=== PATIENT | female | born 1930 | race Caucasian/White ===

== ENCOUNTER 2017-04-27 06:58 | Inpatient (IN) ==
[2017-04-27] MEDS ORDERED: Lidocaine -MPF 1% 2 ML VIAL ID ONE (08:15)
[2017-04-27] MEDS ORDERED: cefOXitin 2,000 MG in D5% in Water (Mini-Bag+) 100 ML IVPB ONE (08:15)
[2017-04-27] MEDS ORDERED: Ringers Solution, Lactated 1,000 ML IVC SCH (08:15)
--- NOTE | 2017-04-27 08:27 | Anesthesia Evaluation PreOp ---
Date of Encounter: 04/27/17 Time of Encounter: 08:25 - Past History Planned Operation: Robotic descending colon resection Cardiac History: MD, CHF, HTN, Hyperlipidemia, Other (Cardiomyopathy EF- 30-35%) Pulmonary History: Denies Any Significant HX REJECT OPENER AND FILLER History: Denies Any Significant HX, Syncope (Hx of syncopy ( last episode 1 year ago)) Other Medical History: Renal (lithiasis), Other (Glaucoma) Anesthesia History: No Prior Anesthetic Complications, Past Anesthesia (Tonsils , Appy, Bowel resection, GB, renal stones) : No Alcohol Use: none Drug use: none Medications and Allergies Aspirin [Adult Low Dose Aspirin EC] 81 mg PO DAILY 01/06/16 [History] Latanoprost [Xalatan] 1 drop BOTH EYES HS 01/06/16 [History] Multivit-Min/FA/Lycopen/Lutein [Centrum Silver Tablet] 1 each PO DAILY 01/06/16 [History] Omeprazole Magnesium [Prilosec Otc] 20 mg PO DAILY 01/06/16 [History] Ferrous Sulfate [Iron] 325 mg PO TID 02/18/16 [History] Pravastatin Sodium [Pravachol] 40 mg PO DAILY 02/18/16 [History] Timolol [Betimol] 1 drop OP QAM 02/18/16 [History] Furosemide [Lasix] 40 mg PO DAILY 03/28/16 [History] Isosorbide MONOnitrate (24 HR) [Imdur] 30 mg PO DAILY 03/28/16 [History] Losartan Potassium [Cozaar] 25 mg PO DAILY 03/28/16 [History] Calcium Citrate/Vitamin D2 [Calcium with Vit D Tablet] 1 each PO BID 07/22/16 [ History] Docusate Sodium [Dok] 100 mg PO DAILY 07/22/16 [History] Allergies Sulfa (Sulfonamide Antibiotics) Allergy (Verified 01/06/17 14:54) Rash bacitracin [From Neosporin ([id number])] Adverse Reaction (Verified 01/06/17 14:54) Redness of Skin lisinopril Adverse Reaction (Verified 01/06/17 14:54) Cough Neomycin [From Neosporin ([id number])] Adverse Reaction (Verified 01/06/17 14 :54) Redness of Skin polymyxin B [From Neosporin (ooe-pxi-bvpyt)] Adverse Reaction (Verified 14:54) Redness of Skin - Meds/Allergy Pre-op Review Medications Reviewed: Yes Allergies Reviewed: Yes Beta Blockers on Current Med List: No Anesthesia Results - Labs Stress echo Mod to severe EF- 30-35% EF improved to 35-40% with 20 mcg/kg/min dobutamine Laboratory Tests 03/09/17 04/25/17 04/25/17 11:00 12:10 12:10 WBC 5.3 Hgb 8.8 L Hct 28.6 L Plt Count 324 INR 1.1 Sodium 142 Potassium 4.0 Chloride 105 Carbon Dioxide 27 BUN 9 Creatinine 0.91 - Imaging EKG: image reviewed (SB with LBBB) Anesthesia Exam O2 Sat Height 1.42 m Height 1.42 m Weight 37.648 kg Weight 37.648 kg O2 Sat by Pulse Oximetry 99 Vital Signs Temp Pulse Resp BP Pulse Ox 98.0 F 65 16 140/71 99 04/27/17 07:28 04/27/17 07:28 04/27/17 07:28 04/27/17 07:28 04/27/17 07:28 Height: 4'8'' Weight: 83# NPO (# of Hours): > 8 hrs Pain Scale: 0 Pain Scale Used: Numeric (1 - 10) - HEENT Pupil (Motor): Pupils equal, EOMI Mallampati: III Teeth: Poor dentition Oral Opening: Greater than 3 - REJECT OPENER AND FILLER LOC: Oriented REJECT OPENER AND FILLER Motor: Normal RUE, Normal LUE, Normal RLE, Normal LLE, Normal Face REJECT OPENER AND FILLER Sensory: Normal: RUE, LUE, RLE, LLE, Face - Cardiac Rhythm: Regular Murmur: None JVD: No Carotid Bruit: No - Pulmonary Breath Sounds: bilateral Clear Respiratory Effort: Symmetrical Anesthesia Assess/Plan ASA Score: 4 Modified [place] Scale for Level of Consciousness: Cooperative, oriented, and tranquil Anesthetic Plan: General Autologous Blood: Yes Monitoring Plan: Standard Monitors, A-Line Recovery Plan: PACU
[2017-04-27] MEDS ORDERED: Albumin Human 5% 25.0 GM/500 ML VIAL ONE (08:57)
[2017-04-27] MEDS ORDERED: *HR* Propofol 200 MG/20 ML VIAL IVP ONE (08:59)
[2017-04-27] MEDS ORDERED: *HR* Rocuronium Bromide 50 MG/5 ML VIAL ONE (09:01)
[2017-04-27] MEDS ORDERED: Lidocaine -MPF 2% 2 ML VIAL ONE ×2 (09:01→10:02)
--- NOTE | 2017-04-27 09:20 | History & Physical Report ---
Date of Encounter: 04/27/17 Time of Encounter: 09:19 24 Hour HP Update - Instructions Instructions: If the History and Physical is less than 30 days old and was completed prior to A.M. admission and or procedure and has NOT been updated on calendar day of procedure please complete this update prior to performing procedure. - Update Patient reports changes in Medical Condition: No Changes in examination, assessment, or condition: No Changes in Medication: No Preop tests/diagnostics Reviewed: Yes Surgery Remains Indicated: Yes Consent for Planned Operative Procedure(s) Verified: Yes - Pre-Operative Checklist Preoperative Checklist Indicated: Yes Prophylactic Antibiotic Ordered: Yes Home Medications Include Beta Christofer: No
[2017-04-27] MEDS ORDERED: *HR* Etomidate 40 MG/20 ML VIAL IVP ONE (09:39)
[2017-04-27] MEDS ORDERED: Heparin 1,000 UNITS/500 mL NS 500 ML ONE (09:52)
[2017-04-27] MEDS ORDERED: EPHEDrine 50 MG/ML VIAL ONE (10:42)
[2017-04-27] MEDS ORDERED: *HR* FentaNYL (PF) 100 MCG/2 ML VIAL ONE (10:46)
[2017-04-27] MEDS ORDERED: Neostigmine Methylsulfate 3 MG/3 ML SYRINGE ONE ×2 (11:59→14:02)
--- NOTE | 2017-04-27 12:59 | Anesthesia Evaluation Post Op ---
Date of Encounter: 04/27/17 Time of Encounter: 12:58 - Vital Signs Vital Signs: Vital Signs/O2 Sat, Most Current Temp Pulse Resp BP Pulse Ox 99.2 F 70 16 154/75 100 04/27/17 12:25 04/27/17 12:45 04/27/17 12:45 04/27/17 12:45 04/27/17 12:45 - Lungs Lungs: Clear Ascult./Percussion - Airway Airway: Non-obstructed - Cardiovascular Regular Rate - Mental Status Mental Status: Alert & Oriented, Answers Appropriately - Pain Pain Scale: 5 (sleeping) - Nausea Vomiting Nausea Vomiting: Not Present - Hydration Hydration: NPO, Medina catheter - Discharge PostOp Status: Transfer Patient to floor
[2017-04-27] MEDS ORDERED: *HR* HYDROmorphone 2 MG/ML SYRINGE IVP PRN (13:38)
[2017-04-27] MEDS ORDERED: Ondansetron 4 MG/2 ML VIAL ONE (14:02)
[2017-04-27] MEDS ORDERED: Naloxone 0.4 MG/ML INJ IVP PRN ×2 (15:38→16:23)
[2017-04-27] MEDS ORDERED: Ondansetron 4 MG/2 ML VIAL IVP PRN ×2 (15:38→16:23)
--- NOTE | 2017-04-27 15:38 | Operative Note ---
Date of procedure: 04/27/17 Pre-op diagnosis: Colon cancer Post-op diagnosis: same Procedure: Store Operations Associate laparotomy with splenic flexure resection and stapled anastomosis Anesthesia: CACHORRO Surgeon: Zeke Sanchez Estimated blood loss (cc): 20 Specimen: Splenic flexure Condition: stable Disposition: same day Procedure in Detail: After informed consent, the patient was taken the operating room placed in the supine position. After adequate sedation anesthesia the abdomen was prepped and draped. A 12 mm cannula site was inserted to the right of the umbilicus. Once the camera was in place I evaluated the abdomen and found that the tattoo john was actually at splenic flexure and not in the descending/sigmoid colon junction. Therefore due to her aortic stenosis and advanced age I decided to make a limited laparotomy incision at the umbilicus by proximally 6 cm. I was able to just get my hand inside of her abdomen and isolate splenic flexure tumor. Fortunately there was excess length of the transverse colon and descending colon. The lateral attachments were taken down with electrocautery. The colon was delivered into the wound bed. The proximal and distal ends of the colon were transected with the MICA 75 mm stapler. There was a wedge lymphadenectomy specimen performed. Once completed the proximal and distal ends of the colon were anastomosed with a MICA 75 mm stapling load and a side to side functional end and capacity. The common enterotomy was closed with a TA 60 stapler. The staple line was oversewn with 3-0 silk. Once completed the abdomen was closed with a looped PDS suture and skin was closed with steph. She tolerated the procedure well.
[2017-04-27] MEDS ORDERED: D5% in 0.45% NACL 1,000 ML IVC SCH (15:45)
[2017-04-27] MEDS: Ringers Solution, Lactated 1,000 ML IVC SCH (18:04)
[2017-04-27] MEDS: D5% in 0.45% NACL 1,000 ML IVC SCH (18:04)
[2017-04-27] MEDS: *HR* HYDROmorphone 2 MG/ML SYRINGE IVP PRN (18:07)
[2017-04-28 05:52] LABS: Basophils % 0.3 %; Hematocrit 25.2 % (35.3-44.9); Immature Granulocytes % 0.2 % (0-4); Lymphocytes # 0.8 K/mcL (0.6-4.6); Lymphocytes % 8.2 %; Mean Corpuscular HGB Conc 31.7 g/dL (31.6-35.5); Mean Corpuscular Hemoglobin 29.3 pg (28.0-33.3); Mean Corpuscular Volume 92.3 fL (83.0-100.0); Mean Platelet Volume 11.2 fL (9.4-12.4); Monocytes # 0.6 K/mcL (0.0-1.3); Monocytes % 6.1 %; Platelet Count 221 K/mcL (140-400); Red Blood Count 2.73 M/mcL (3.82-4.97); Red Cell Distribution Width 13.5 % (11.5-14.5); Segmented Neutrophils % 85.2 %
[2017-04-28 05:55] LABS: Neutrophils # 8.5 K/mcL (1.6-8.9)
[2017-04-28 06:13] LABS: BUN/Creatinine Ratio 8 (6-26); Blood Urea Nitrogen 6 mg/dL (7-20); Calcium 8.2 mg/dL (8.6-10.8); Carbon Dioxide 24 mEq/L (19-29); Chloride 106 mEq/L (98-109); Glucose 140 mg/dL (70-99); Osmolality,Calculated 284 (280-300); Potassium 3.3 mEq/L (3.5-4.5); Sodium 137 mEq/L (136-145); eGFR For African Americans > 60 (> 60); eGFR For Non-African Americans > 60 (> 60)
[2017-04-28] MEDS: *HR* HYDROmorphone 2 MG/ML SYRINGE IVP PRN (07:42)
[2017-04-28] MEDS: D5% in 0.45% NACL 1,000 ML IVC SCH (11:09)
[2017-04-28] MEDS ORDERED: Mag Hydrox/Al Hydrox/Simeth 30 ML UDC PO PRN (19:56)
[2017-04-28] MEDS: Ringers Solution, Lactated 1,000 ML IVC SCH (20:09)
[2017-04-28] MEDS: Isosorbide MONOnitrate (24 HR) 30 MG TAB.ER.24H PO SCH (21:14)
[2017-04-29] MEDS: D5% in 0.45% NACL 1,000 ML IVC SCH ×2 (03:55→20:46)
--- NOTE | 2017-04-29 09:54 | General Surgery Progress Note ---
Date of Encounter: 04/28/17 Time of Encounter: 06:15 - Assessment and Plan (1) Colon cancer Current Visit: Yes Status: Acute Continue clear liquids for now. Patient to be up and ambulate. 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 Subjective Patient reports: no new complaints Objective Vital Signs - Last 8 Hours Temp Pulse Resp BP Pulse Ox 04/29/17 07:26 98.2 F 93 17 139/76 93 04/29/17 03:01 98.5 F 98 14 155/68 96 Intake and Output 04/28/17 04/29/17 04/29/17 23:59 07:59 15:59 Intake Total 340 / 340 1000 / 1000 Output Total 650 / 650 Balance -310 / -310 1000 / 1000 Intake: IV Fluids 1000 / 1000 D5% And 0.45% Nacl 1000 1000 / 1000 Ml Bag 1,000 ML @ 60 mls/ hr IVC .[id number] [facility] Rx#: [id number] Oral 340 / 340 Output: Catheter 650 / 650 Other: Meal Dinner Percent of Meal Consumed 80% Weight 40 kg Patient Weight 04/29/17 23:59 Weight 40 kg - General physical appearance well developed - Eyes PERRL - ENT normal nares - Respiratory normal expansion - Cardiovascular Cardiovascular exam: Present: RRR - Abdomen Abdomen: Present: soft - Labs 04/28/17 05:10 04/28/17 05:10 - VTE Documentation of Mechanical Device: Intermittent pneumatic compression device Consult Discharge Plan - Plan Referrals: Christian Marshall, SENIOR CARE PROVIDER [Primary Care Provider] -
--- NOTE | 2017-04-29 09:56 | General Surgery Progress Note ---
Date of Encounter: 04/29/17 Time of Encounter: 09:54 - Assessment and Plan (1) Colon cancer Current Visit: Yes Status: Acute We will hold on clear liquids for now, plan for acute abdominal series. If there is small bowel distention we will plan to perform an NG tube placement. 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 She is unable to tolerate her clear liquids. She states she feels full and has the feeling that she may vomit.) Objective Vital Signs - Last 8 Hours Temp Pulse Resp BP Pulse Ox 04/29/17 07:26 98.2 F 93 17 139/76 93 04/29/17 03:01 98.5 F 98 14 155/68 96 Intake and Output 04/28/17 04/29/17 04/29/17 23:59 07:59 15:59 Intake Total 340 / 340 1000 / 1000 Output Total 650 / 650 Balance -310 / -310 1000 / 1000 Intake: IV Fluids 1000 / 1000 D5% And 0.45% Nacl 1000 1000 / 1000 Ml Bag 1,000 ML @ 60 mls/ hr IVC .[id number] [facility] Rx#: [id number] Oral 340 / 340 Output: Catheter 650 / 650 Other: Meal Dinner Percent of Meal Consumed 80% Weight 40 kg Patient Weight 04/29/17 23:59 Weight 40 kg - General physical appearance well developed - Eyes PERRL - ENT normal nares - Respiratory normal expansion - Cardiovascular Cardiovascular exam: Present: tachycardia - Abdomen Abdomen: Present: distended - Incision Incision: Present: clean and dry - Labs 04/28/17 05:10 04/28/17 05:10 - VTE Documentation of Mechanical Device: Intermittent pneumatic compression device Consult Discharge Plan - Plan Referrals: Christian Marshall, VICE PRESIDENT QUALITY [Primary Care Provider] -
[2017-04-29] MEDS ORDERED: Ondansetron 4 MG/2 ML VIAL IVP PRN (14:13)
[2017-04-29] MEDS: Ringers Solution, Lactated 1,000 ML IVC SCH (15:06)
[2017-04-29] MEDS: Isosorbide MONOnitrate (24 HR) 30 MG TAB.ER.24H PO SCH (20:44)
--- NOTE | 2017-04-30 10:46 | General Surgery Progress Note ---
Date of Encounter: 05/01/17 Time of Encounter: 10:45 - Assessment and Plan (1) Colon cancer Current Visit: Yes Status: Acute Status post colon resection. Awaiting full return of bowel function. Will continue with NG tube for now and will add Reglan to see if this helps with the patient's nausea symptoms. Otherwise continue current management. Follow BMP. 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 NGT in place. No flatus.) Objective Vital Signs - Last 8 Hours Temp Pulse Resp BP Pulse Ox 04/30/17 07:24 97.7 F 93 20 107/50 95 04/30/17 03:35 98.0 F 91 16 122/65 93 Intake and Output 04/29/17 04/30/17 04/30/17 23:59 07:59 15:59 Intake Total 1000 / 1000 Output Total 100 / 100 200 / 200 Balance 900 / 900 -200 / -200 Intake: IV Fluids 1000 / 1000 D5% And 0.45% Nacl 1000 1000 / 1000 Ml Bag 1,000 ML @ 60 mls/ hr IVC .[id number] [facility] [place] Rx#: [id number] Output: Wound Drainage 100 / 100 200 / 200 Left Narse NG 100 / 100 200 / 200 Other: Meal npo Percent of Meal Consumed 0% Weight 42.9 kg Patient Weight 04/30/17 23:59 Weight 42.9 kg - General physical appearance well nourished, other (Mild distress noted.) - Abdomen Abdomen: Present: soft (Mild incisional pain. Incision CDI. No erythema. No drainage. No bowel sounds.) - Labs 04/28/17 05:10 05/01/17 03:32 - VTE Documentation of Mechanical Device: Intermittent pneumatic compression device Consult Discharge Plan - Plan Referrals: Christian Marshall, INTERNATIONAL LOGISTICS ANALYST [Primary Care Provider] -
[2017-04-30] MEDS: Metoclopramide 10 MG/2 ML VIAL IVP SCH ×2 (12:31→17:32)
[2017-04-30] MEDS: D5% in 0.45% NACL 1,000 ML IVC SCH (12:31)
[2017-04-30] MEDS: Ringers Solution, Lactated 1,000 ML IVC SCH (14:18)
[2017-04-30] MEDS: Isosorbide MONOnitrate (24 HR) 30 MG TAB.ER.24H PO SCH (20:26)
[2017-04-30] MEDS: Latanoprost 2.5 ML BOTTLE BOTH EYES SCH (20:31)
[2017-05-01] MEDS: Metoclopramide 10 MG/2 ML VIAL IVP SCH ×4 (00:30→17:08)
[2017-05-01 04:22] LABS: BUN/Creatinine Ratio 13 (6-26); Blood Urea Nitrogen 8 mg/dL (7-20); Calcium 8.3 mg/dL (8.6-10.8); Carbon Dioxide 26 mEq/L (19-29); Chloride 95 mEq/L (98-109); Glucose 116 mg/dL (70-99); Osmolality,Calculated 269 (280-300); eGFR For African Americans > 60 (> 60); eGFR For Non-African Americans > 60 (> 60)
[2017-05-01 04:24] LABS: Sodium 130 mEq/L (136-145)
[2017-05-01] MEDS: D5% in 0.45% NACL 1,000 ML IVC SCH ×2 (05:31→21:46)
[2017-05-01] MEDS: Pantoprazole 40 MG VIAL IVP SCH (08:12)
--- NOTE | 2017-05-01 08:53 | General Surgery Progress Note ---
Date of Encounter: 05/02/17 Time of Encounter: 08:52 - Assessment and Plan (1) Colon cancer Current Visit: Yes Status: Acute Status post colon resection. NGT output appears to be decreasing. Will consider placing NGT on gravity. Await return of bowel function. 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 Will replace with KCL. Follow BMP. Subjective Patient reports: feels better (States no nausea. No flatus or BM. Pain is controlled with pain medications.), other Objective Vital Signs - Last 8 Hours Temp Pulse Resp BP Pulse Ox 05/01/17 07:40 97.9 F 80 16 134/62 92 05/01/17 04:49 98.1 F 85 14 138/54 93 Intake and Output 04/30/17 05/01/17 05/01/17 23:59 07:59 15:59 Intake Total 1000 / 1000 Output Total 200 / 200 1250 / 1250 150 / 150 Balance -200 / -200 -250 / -250 -150 / -150 Intake: IV Fluids 1000 / 1000 D5% And 0.45% Nacl 1000 1000 / 1000 Ml Bag 1,000 ML @ 60 mls/ hr IVC .[id number] [facility] Rx#: [id number] Output: Catheter 650 / 650 Wound Drainage 200 / 200 600 / 600 150 / 150 Left Narse NG 200 / 200 600 / 600 150 / 150 Other: Meal npo Weight 43.2 kg Patient Weight 05/01/17 23:59 Weight 43.2 kg - General physical appearance well nourished, no distress - Abdomen Abdomen: Present: soft, tender (Mild incisional pain. Scant BS present.) - Musculoskeletal other (No clubbing, cyaosis, or edema present.) - Psychiatric oriented to time, oriented to person, oriented to place - Labs 04/28/17 05:10 05/01/17 03:32 Diabetes panel 05/01/17 Range/Units 03:32 Sodium 130 L D (136-145) mEq/L Potassium 3.0 L (3.5-4.5) mEq/L Chloride 95 L (98-109) mEq/L Carbon Dioxide 26 (19-29) mEq/L BUN 8 (7-20) mg/dL Creatinine 0.63 (0.57-1.11) mg/dL Glucose 116 H (70-99) mg/dL Calcium 8.3 L (8.6-10.8) mg/dL Calcium panel 05/01/17 Range/Units 03:32 Calcium 8.3 L (8.6-10.8) mg/dL Pituitary panel 05/01/17 Range/Units 03:32 Sodium 130 L D (136-145) mEq/L Potassium 3.0 L (3.5-4.5) mEq/L Chloride 95 L (98-109) mEq/L Carbon Dioxide 26 (19-29) mEq/L BUN 8 (7-20) mg/dL Creatinine 0.63 (0.57-1.11) mg/dL Glucose 116 H (70-99) mg/dL Calcium 8.3 L (8.6-10.8) mg/dL Adrenal panel 05/01/17 Range/Units 03:32 Sodium 130 L D (136-145) mEq/L Potassium 3.0 L (3.5-4.5) mEq/L Chloride 95 L (98-109) mEq/L Carbon Dioxide 26 (19-29) mEq/L BUN 8 (7-20) mg/dL Creatinine 0.63 (0.57-1.11) mg/dL Glucose 116 H (70-99) mg/dL Calcium 8.3 L (8.6-10.8) mg/dL - VTE Documentation of Mechanical Device: Intermittent pneumatic compression device Consult Discharge Plan - Plan Referrals: Christain Marshall, INSTITUTIONAL COOK [Primary Care Provider] -
[2017-05-01] MEDS: Ringers Solution, Lactated 1,000 ML IVC SCH (13:43)
[2017-05-01] MEDS: Latanoprost 2.5 ML BOTTLE BOTH EYES SCH (21:43)
[2017-05-01] MEDS: Isosorbide MONOnitrate (24 HR) 30 MG TAB.ER.24H PO SCH (21:43)
[2017-05-02] MEDS: Metoclopramide 10 MG/2 ML VIAL IVP SCH ×4 (00:27→16:58)
[2017-05-02] MEDS: Pantoprazole 40 MG VIAL IVP SCH (06:10)
--- NOTE | 2017-05-02 15:05 | General Surgery Progress Note ---
Date of Encounter: 05/02/17 Time of Encounter: 14:45 - Assessment and Plan (1) Colon cancer Current Visit: Yes Status: Acute POD #5 laparotomy with splenic flexure resection and stapled anastomosis with Dr. 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 (2) DVT prophylaxis Current Visit: Yes Status: Acute EPCDs to bilateral lower extremities for DVT prophylaxis Ambulate hallways with assistance add heparin 5,000 units SQ twice daily Subjective Patient reports: no new complaints, feels better, pain is less (denies pain, states that she is "sore"), no flatus, bowel movement, afebrile, other (Patient states that she is hungry and ready for food.) Objective Vital Signs - Last 8 Hours Temp Pulse Resp BP Pulse Ox 05/02/17 10:53 98.0 F 88 17 151/69 96 05/02/17 09:10 92 05/02/17 07:14 98.2 F 81 18 145/62 92 Intake and Output 05/01/17 05/02/17 05/02/17 23:59 07:59 15:59 Intake Total 1000 / 1000 Output Total 0 / 0 50 / 50 Balance 1000 / 1000 -50 / -50 Intake: IV Fluids 1000 / 1000 D5% And 0.45% Nacl 1000 1000 / 1000 Ml Bag 1,000 ML @ 60 mls/ hr IVC .[id number] [facility] Rx#: [id number] Output: Wound Drainage 0 / 0 50 / 50 Left Narse NG 0 / 0 50 / 50 Other: Meal NPO for dinner NPO for lunch Stool Size Large Stool Consistency liquid soft Stool Color Brown # Bowel Movements 1 Weight 42.7 kg Patient Weight 05/02/17 23:59 Weight 42.7 kg - General physical appearance well developed, well nourished, no distress - Eyes normal ocular movement - ENT dry mucosa, atraumatic, normocephalic - Neck Neck exam: trachea midline - Respiratory normal respiratory effort, clear to auscultation - Cardiovascular Cardiovascular exam: Present: RRR - Abdomen Abdomen: Present: bowel sounds present, soft, tender (minimal, expected tenderness), wound (NG tube to gravity with less than 100ml of drainage since midnight) - Incision Incision: Present: clean and dry, intact - Genitourinary other (bardales catheter to SD with clear, yellow urine) - Neurologic CN 2-12 grossly intact - Psychiatric oriented to time, oriented to person, oriented to place, speech is normal, memory intact - Labs 04/28/17 05:10 05/01/17 03:32 - VTE Documentation of Mechanical Device: Intermittent pneumatic compression device Consult Discharge Plan - Plan Referrals: Christian Marshall, GRANT COORDINATOR [Primary Care Provider] - - Attending Attestation I examined this patient and my medical decision-making was reviewed with the MULTIMEDIA ASSISTANT/PA/Advanced Practice Nurse/Resident Physician. I agree with the documented findings, disposition and treatment plan as described except to the extent set forth below.
[2017-05-02] MEDS ORDERED: *HR* HYDROcodone/Acet 5/325 mg TABLET PO PRN (15:21)
[2017-05-02] MEDS ORDERED: Acetaminophen 325 MG TABLET PO PRN (15:22)
[2017-05-02] MEDS ORDERED: *HR* HYDROmorphone 2 MG/ML SYRINGE IVP PRN (15:24)
[2017-05-02] MEDS: *HR* Heparin 5,000 UNIT/ML VIAL SQ SCH (16:57)
[2017-05-02] MEDS: Isosorbide MONOnitrate (24 HR) 30 MG TAB.ER.24H PO SCH (21:02)
[2017-05-02] MEDS: Latanoprost 2.5 ML BOTTLE BOTH EYES SCH (21:03)
[2017-05-03] MEDS: Metoclopramide 10 MG/2 ML VIAL IVP SCH ×2 (00:31→06:49)
[2017-05-03 06:33] LABS: Albumin 2.3 g/dL (3.5-5.0); BUN/Creatinine Ratio 16 (6-26); Blood Urea Nitrogen 9 mg/dL (7-20); Calcium 8.1 mg/dL (8.6-10.8); Carbon Dioxide 24 mEq/L (19-29); Chloride 103 mEq/L (98-109); Glucose 98 mg/dL (70-99); Osmolality,Calculated 273 (280-300); Potassium 3.4 mEq/L (3.5-4.5); Sodium 132 mEq/L (136-145); eGFR For African Americans > 60 (> 60); eGFR For Non-African Americans > 60 (> 60)
[2017-05-03] MEDS: *HR* Heparin 5,000 UNIT/ML VIAL SQ SCH (06:48)
[2017-05-03 11:18] VITALS: BP 116/61
--- NOTE | 2017-05-03 11:21 | Discharge Summary ---
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 - Discharge Medications Home Medications: Latanoprost [Xalatan] 1 drop BOTH EYES HS 01/06/16 [History] Multivit-Min/FA/Lycopen/Lutein [Centrum Silver Tablet] 1 each PO DAILY 01/06/16 [History] Omeprazole Magnesium [Prilosec Otc] 20 mg PO DAILY 01/06/16 [History] Ferrous Sulfate [Iron] 325 mg PO TID 02/18/16 [History] Pravastatin Sodium [Pravachol] 40 mg PO DAILY 02/18/16 [History] Timolol [Betimol] 1 drop OP QAM 02/18/16 [History] Furosemide [Lasix] 40 mg PO DAILY 03/28/16 [History] Isosorbide MONOnitrate (24 HR) [Imdur] 30 mg PO DAILY 03/28/16 [History] Losartan Potassium [Cozaar] 25 mg PO DAILY 03/28/16 [History] Calcium Citrate/Vitamin D2 [Calcium with Vit D Tablet] 1 each PO BID 07/22/16 [ History] Docusate Sodium [Dok] 100 mg PO DAILY PRN 07/22/16 [History] Acetaminophen [Tylenol] 650 mg PO Q6HR PRN #0 tablet 05/03/17 [Rx] Allergies/Adverse Reactions: Allergies Sulfa (Sulfonamide Antibiotics) Allergy (Verified 04/27/17 09:23) Rash bacitracin [From Neosporin ([id number])] Adverse Reaction (Verified 04/27/17 09:23) Redness of Skin lisinopril Adverse Reaction (Verified 04/27/17 09:23) Cough Neomycin [From Neosporin ([id number]-cgzkz)] Adverse Reaction (Verified 04/27/17 09 :23) Redness of Skin polymyxin B [From Neosporin ([id number]-wve-jmoqy)] Adverse Reaction (Verified 09:23) Redness of Skin General Surgery Exam Initial Vital Signs Temp Pulse Resp BP Pulse Ox 98.0 F 65 16 140/71 99 04/27/17 07:28 04/27/17 07:28 04/27/17 07:28 04/27/17 07:28 04/27/17 07:28 - General physical appearance well developed, well nourished, no distress, other (Out of bed to chair) - Eyes normal ocular movement - ENT normal mucosa, atraumatic, normocephalic - Neck trachea midline - Respiratory normal respiratory effort, clear to auscultation - Cardiovascular Cardiovascular exam: Present: RRR, 15, 16 - Abdomen Abdomen general surgery: Present: bowel sounds present, soft, tender (Minimal, expected postoperative tenderness) - Incision Incision: Present: clean and dry, intact - Integumentary Integumentary general surgery: Present: warm and dry - Neurologic Present: CN 2-12 grossly intact - Psychiatric Psychiatric general surgery: Present: appropriate, oriented to person, oriented to place, oriented to time, speech is normal, memory intact Date of admission: 04/27/17 13:03 Primary care physician: Christian Marshall CNP Consults: 05/01/17 07:25 Consult to Occupational Therapy [CONS] Routine Comment: Evaluate, develop and implement POC Reason for Consult: open colon resection. activity intolerance. Consult to Physical Therapy [CONS] Routine Comment: Evaluate, develop and implement POC Reason for Consult: open colon resection. activity intolerance. 05/02/17 15:24 consult to machining and assembly supervisor [Consult to Nutrition] [CONS] Routine Comment: chocolate ensure TID with meals Consulting Provider: NUTRITION Reason for Dietary Consult: PO Supplementation Discharging clinician: Zeke Vincent [facility]) Anticipated date of discharge: 05/03/17 - Patient Status Disposition: Home, Self-Care Condition: Good Functional capacity at discharge: independent ambulation Overall status at discharge: patient is progressing back to baseline - Discharge Instructions Follow Up With: Zeke Sanchez DO [Partnered Physician] - 05/10/17 1:00 pm (Surgery follow-up) Heber Kinsey MD [Partnered Physician] - 05/10/17 9:30 am (2 weeks) Christain Marshall CNP [Primary Care Provider] - Additional Instructions: #1 may shower, no tub bath for 2 weeks #2 wash incisions with soap and water and pat dry daily #3 no lifting, pushing, pulling more than 15 pounds for the next 4 weeks #4 no driving until off narcotics for 24 hours and able to safely react in the car #5 may climb stairs - Diet and Activity Diet: advance to your usual diet - Hospital Course Hospital course: Ms. Barton is a 87 year old female with a history of colon cancer. She was seen and evaluated by Dr. Sanchez as an outpatient and is currently postoperative day #6 from a laparotomy with splenic flexure resection and stapled anastomosis. The patient did experience a postoperative ileus and had to have an NG tube inserted and placed to low intermittent wall suction. She was also given a trial of Reglan. The patient's NG tube was placed to gravity with return of bowel function and she tolerated this without difficulty. Her NG tube was removed on postoperative day #5 and she was started on a soft diet. She is tolerating this without nausea or vomiting. She is having very minimal pain and has not required any pain medication. She has been assessed by occupational therapy and physical therapy and they have recommended that she return to home with assistance from family members. We will begin discharge planning and plan for outpatient follow-up in the next 7-10 days for staple removal. The patient's pathology was reviewed with her and her son and they verbalized understanding. She will be scheduled to follow up with oncology in the next 2 weeks. - Time Spent with Patient Total time spent providing and/or coordinating discharge services: Less than 30 minutes Labs on day of discharge: Labs from last 24 hours 05/03/17 05/03/17 05:40 05:40 Sodium 132 L Potassium 3.4 L Chloride 103 Carbon Dioxide 24 BUN 9 Creatinine 0.58 Est GFR ( Amer) > 60 Est GFR (Non-Af Amer) > 60 BUN/Creatinine Ratio 16 Glucose 98 Calculated Osmolality 273 L Calcium 8.1 L Albumin 2.3 L Prealbumin 9.0 L - Impressions ITS Impressions KUB X-Ray 04/29/17 14:14 IMPRESSION: Small bilateral pleural effusions, worse on the right than the left, and associated bibasilar atelectasis. D/ / 04/29/2017 16:36:45 Georgette Galicia MD / suresh Interpreting Provider: Georgette Galicia MD - Attending Attestation I examined this patient and my medical decision-making was reviewed with the WELDER APPRENTICE GAS/PA/Advanced Practice Nurse/Resident Physician. I agree with the documented findings, disposition and treatment plan as described except to the extent set forth below.
--- NOTE | 2017-05-03 11:32 | Electrocardiograph Report ---
[place] [id number] Test Date: 2017-05-02 Pat Name: Mercedes Barton Department: 113 Room: 3B44 Gender: F Sheet Metal Supervisor: TM : [id number] Requested By: Zeke Sanchez Order Number: [id number] Reading MD: Negra Can Measurements Intervals [place] Rate: 108 P: 42 MT: 151 QRS: -9 QRSD: 146 T: 97 QT: 369 QTc: 432 Interpretive Statements SINUS TACHYCARDIA WITH OCCASIONAL ECTOPIC PREMATURE COMPLEXES LEFT BUNDLE BRANCH BLOCK Electronically Signed On 05-03-2017 11:31:14 EDT by Negra Can
[2017-05-03 14:24] LABS: Carcinoembryonic Antigen 3.3 ng/mL (0-5.0)
== END 2017-05-03 14:42 | disposition home or self-care (01) | DRG 330 ==
LOC: SAMDAY 06:58 → 3BNU 13:03
PROVIDERS: ADMIT Surgery; ATTEND Surgery

== ENCOUNTER 2017-08-22 07:37 | Inpatient (IN) ==
[2017-08-22] MEDS ORDERED: Heparin 1,000 UNITS/500 mL NS 500 ML ONE (08:39)
[2017-08-22] MEDS ORDERED: ceFAZolin 1,000 MG in D5% in Water (Mini-Bag+) 100 ML IVPB SCH (08:56)
[2017-08-22] MEDS ORDERED: *HR* FentaNYL (PF) 100 MCG/2 ML VIAL IVP PRN (08:56)
--- NOTE | 2017-08-22 08:56 | History & Physical Report ---
Date of Encounter: 08/22/17 Time of Encounter: 09:00 24 Hour HP Update - Instructions Instructions: If the History and Physical is less than 30 days old and was completed prior to A.M. admission and or procedure and has NOT been updated on calendar day of procedure please complete this update prior to performing procedure. - Update Patient reports changes in Medical Condition: No Changes in examination, assessment, or condition: No Changes in Medication: No Preop tests/diagnostics Reviewed: Yes Pre-Op MRSA Screen: Negative Surgery Remains Indicated: Yes Consent for Planned Operative Procedure(s) Verified: Yes - Pre-Operative Checklist Preoperative Checklist Indicated: Yes Prophylactic Antibiotic Ordered: Yes Is VTE Prophylaxis Indicated?: NO
[2017-08-22] MEDS ORDERED: 0.9 % Sodium Chloride 500 ML ONE ×2 (08:57→09:19)
[2017-08-22] MEDS ORDERED: Ampicillin/Sulbactam 1,500 MG in 0.9 % Sodium Chloride Mini Bag 100 ML IVPB ONE (09:11)
[2017-08-22] MEDS ORDERED: Acetaminophen 325 MG TABLET PO PRN (10:15)
--- NOTE | 2017-08-22 10:37 | IR Procedure Note ---
Date of procedure: 08/22/17 Consent Obtained: Written consent Timeout: Correct patient and procedure verified, Correct site verified, Time out performed, Skin prep completed Indications: liver mets Procedure Performed: hepatic angio/embolization Site/Technique: rt hepatic artery Results/Findings: embolized with embozines, one vial, tumor blush gone Estimated blood loss (cc): 4 Complications: None; Tolerated procedure well Post Procedure Treatment Plan: admit for obsservation
[2017-08-22] MEDS ORDERED: Naloxone 0.4 MG/ML INJ IVP PRN (12:16)
[2017-08-22 12:38] LABS: Hematocrit 28.2 % (35.3-44.9); Hemoglobin 9.1 g/dL (11.5-15.4); Mean Corpuscular HGB Conc 32.3 g/dL (31.6-35.5); Mean Corpuscular Hemoglobin 30.6 pg (28.0-33.3); Mean Corpuscular Volume 94.9 fL (83.0-100.0); Mean Platelet Volume 11.1 fL (9.4-12.4); Platelet Count 194 K/mcL (140-400); Red Blood Count 2.97 M/mcL (3.82-4.97); Red Cell Distribution Width 24.5 % (11.5-14.5)
[2017-08-22 12:53] LABS: Alanine Aminotransferase 11 Units/L (0-55); Albumin 3.6 g/dL (3.5-5.0); Albumin/Globulin Ratio 1.3 (1.1-2.2); Alkaline Phosphatase 63 Units/L (38-126); Aspartate Amino Transferase 18 Units/L (5-34); BUN/Creatinine Ratio 30 (6-26); Bilirubin,Total 0.7 mg/dL (0.2-1.2); Blood Urea Nitrogen 26 mg/dL (7-20); Calcium 9.1 mg/dL (8.6-10.8); Carbon Dioxide 25 mEq/L (19-29); Chloride 109 mEq/L (98-109); Globulin 2.8 g/dL (2.4-3.5); Glucose 109 mg/dL (70-99); Osmolality,Calculated 303 (280-300); Potassium 3.7 mEq/L (3.5-4.5); Sodium 144 mEq/L (136-145); Total Protein 6.4 g/dL (6.0-8.3); eGFR For African Americans > 60 (> 60); eGFR For Non-African Americans > 60 (> 60)
--- NOTE | 2017-08-22 12:57 | Internal Med History&Physical ---
<MookieKameronMeg J - Last Filed: 08/22/17 12:55> Date of Encounter: 08/22/17 Time of Encounter: 12:55 Assessment and Plan (1) Colon cancer Current visit: No Status: Acute Ms. Barton is a 87-year-old female with PMH iron deficiency anemia, CHF, renal insufficiency, aortic valve stenosis and colon cancer with liver metastases who presented to [facility] on 08/22/2017 for planned right hepatic artery embolization. Colon cancer: with metastasis to liver. Follows with Dr. Sharma and currently on chemo. S/p right hepatic artery embolization on 08/22/[address] Perez (IR). Right femoral site without bleeding or drainage. Monitor site, bed-rest per IR Qualifiers: Colon location: hepatic flexure Qualified Code(s): C18.3 - Malignant neoplasm of hepatic flexure (2) Anemia Current visit: No Status: Acute per hx. Hgb 9.1; baseline appears to be around 10. No active, overbleeding. Hemodynamically stable. Intermittently monitor CBC. Continue home iron supplement. Qualifiers: Anemia type: unspecified type Qualified Code(s): D64.9 - Anemia, unspecified (3) Chronic systolic heart failure Current visit: Yes Status: Acute 06/2016 TTE with EF 35-40%, however per chart review repeat echo at [facility] showed a normal ejection fraction. Appears euvolemic on exam. Continue home diuretic, ARB and nitrate. (4) Severe aortic stenosis Current visit: No Status: Acute 06/2016 TTE with moderate to severe aortic stenosis. Stable, can follow up outpatient (5) DVT prophylaxis Current visit: No Status: Acute heparin Internal Medicine - H&P: HPI Chief complaint: planned right hepatic embolization Admitted From: Home Plans for Post Hospital Care: Home History of present illness: Ms. Barton is a 87-year-old female with PMH iron deficiency anemia, CHF, renal insufficiency, aortic valve stenosis and colon cancer with liver metastases who presented to [facility] on 08/22/2017 for planned right hepatic artery embolization. She was placed in observation status for close monitoring overnight. Information obtained from chart review and patient report. Patient says she is feeling tired, weak and woozy. Just does not feel well overall. No pain at right groin site. Plaints of dull, achy abdominal pain. Nothing seems to make better or worse. Pain radiates to her entire abdomen. No chest pain, shortness of breath Past Med Surg Social Fam HX - Past Medical History Medical history: arthritis, cancer, CHF, GERD, glaucoma, hyperlipidemia, hypertension, kidney stones, valvular heart disease, other Psychiatric history: no psych history - Past Surgical History Surgical History: appendectomy, cataract, colectomy, hysterectomy, other - Social History Smoking Status: Never smoker Smokeless Tobacco Status: No Alcohol use: none Drug use: none - Family History Father Adopted: No Living Status: Hx Family Cardiac Disorders: Yes Internal Medicine - H&P: Meds Multivit-Min/FA/Lycopen/Lutein [Centrum Silver Tablet] 1 each PO DAILY 01/06/16 [History] Omeprazole Magnesium [Prilosec Otc] 20 mg PO DAILY 01/06/16 [History] Ferrous Sulfate [Iron] 325 mg PO DAILY 02/18/16 [History] Pravastatin Sodium [Pravachol] 40 mg PO DAILY 02/18/16 [History] Timolol [Betimol] 1 drop OP QAM 02/18/16 [History] Isosorbide MONOnitrate (24 HR) [Imdur] 30 mg PO DAILY 03/28/16 [History] Losartan Potassium [Cozaar] 25 mg PO DAILY 03/28/16 [History] Capecitabine [Xeloda] 1,000 mg PO BID #56 tablet 05/26/17 [Rx] Potassium Chloride [Klor-Con 10] 20 meq PO DAILY 05/26/17 [History] Torsemide 100 mg PO DAILY 07/07/17 [History] 3 Allergy/AdvReac Type Severity Reaction Status Date / Time Sulfa (Sulfonamide Allergy Rash Verified 04/27/17 09:23 Antibiotics) bacitracin AdvReac Redness of Verified 04/27/17 09:23 [From Neosporin Skin ([id number])] lisinopril AdvReac Cough Verified 04/27/17 09:23 Neomycin AdvReac Redness of Verified 04/27/17 09:23 [From Neosporin Skin ([id number])] polymyxin B AdvReac Redness of Verified 04/27/17 09:23 [From Neosporin Skin ([id number])] All Systems PM: A 10-system review of systems was performed and is negative for pertinent findings except as documented above in the HPI. - Constitutional Constitutional: no chills, no fever(s), no night sweats - EENT Eyes: no change in vision, no discharge, no pain, no photophobia Ears: no ear discharge, no ear pain, no tinnitus Nose, mouth and throat: no dysphagia, no nasal discharge, no neck pain, no sore throat - Cardiovascular Cardiovascular ROS IM: no chest pain, no diaphoresis, no dyspnea, no lightheadedness, no palpitations, no syncope - Respiratory Respiratory: no cough, no dyspnea, no wheezing, no excessive phlegm production - Gastrointestinal Gastrointestinal: no abdominal pain, no diarrhea, no hematemesis, no hematochezia, no melena, no nausea, no vomiting - Genitourinary Genitourinary: no change in urinary stream, no dysuria, no flank pain, no hematuria - Musculoskeletal Musculoskeletal ROS IM: no numbness, no tingling - Integumentary Integumentary IM: no rash, no unusual bruising - Neurological Neurological ROS: no confusion, no convulsions, no focal weakness, no numbness, no tingling, no tremor(s) - Hematologic/Lymphatic Hematologic/Lymphatic: no easy bruising - Constitutional Vitals: Temp Pulse Resp BP Pulse Ox 98.0 F 59 16 139/66 98 08/22/17 10:24 08/22/17 10:54 08/22/17 10:54 08/22/17 10:54 08/22/17 10:54 General appearance: Present: cachectic, A&O X 3 - Head Head exam: Present: atraumatic, normocephalic - Eye Eye exam: Present: PERRL, conjuntiva pink, sclera anicteric Pupils: Present: PERRL - Neck Neck exam general surgery: Present: supple, trachea midline. Absent: lymphadenopathy - Respiratory Respiratory exam: Present: CTAB. Absent: accessory muscle use, rales, rhonchi, wheezes - Cardiovascular Cardiovascular exam: Present: irregular rhythm, RRR, +S1, +S2, systolic murmur. Absent: gallop, rubs - GI/Abdominal GI/Abdominal exam: Present: normal bowel sounds, soft, no peritoneal signs. Absent: distended, tenderness - Extremities Exam Extremities exam: Present: warm, radial pulses palpable and symmetrical. Absent : calf tenderness, cyanotic, pedal edema - Neurological Exam Neurological exam: Present: CN II-XII intact, oriented X3, no focal deficits. Absent: pronater drift, facial droop, speech deficit - Skin Skin exam: Present: dry, intact Internal Med - H&P Results - Labs CBC & Chem 7: 08/22/17 12:29 08/22/17 12:29 Labs: Short CBC 08/22/17 Range/Units 12:29 WBC 5.0 (4.3-11.1) K/mcL Hgb 9.1 L (11.5-15.4) g/dL Hct 28.2 L (35.3-44.9) % Plt Count 194 (140-400) K/mcL BMP 08/22/17 12:29 Sodium 144 Potassium 3.7 Chloride 109 Carbon Dioxide 25 BUN 26 H Creatinine 0.87 Glucose 109 H Calcium 9.1 Liver Function 08/22/17 Range/Units 12:29 Total Bilirubin 0.7 (0.2-1.2) mg/dL AST 18 (5-34) Units/L ALT 11 (0-55) Units/L Alkaline Phosphatase 63 (38-126) Units/L Albumin 3.6 (3.5-5.0) g/dL <Dimas Tamayo - Last Filed: 08/22/17 19:40> Date of Encounter: 08/22/17 Internal Medicine - H&P: HPI History of present illness: Ms. Barton is a 87 year old female All Systems PM: A 10-system review of systems was performed and is negative for pertinent findings except as documented above in the HPI. - Constitutional Vitals: Temp Pulse Resp BP Pulse Ox 98.1 F 80 16 151/76 93 08/22/17 18:56 08/22/17 18:56 08/22/17 18:56 08/22/17 18:56 08/22/17 18:56 Internal Med - H&P Results - Labs CBC & Chem 7: 08/22/17 12:29 08/22/17 12:29 Labs: Short CBC 08/22/17 Range/Units 12:29 WBC 5.0 (4.3-11.1) K/mcL Hgb 9.1 L (11.5-15.4) g/dL Hct 28.2 L (35.3-44.9) % Plt Count 194 (140-400) K/mcL BMP 08/22/17 12:29 Sodium 144 Potassium 3.7 Chloride 109 Carbon Dioxide 25 BUN 26 H Creatinine 0.87 Glucose 109 H Calcium 9.1 Liver Function 08/22/17 Range/Units 12:29 Total Bilirubin 0.7 (0.2-1.2) mg/dL AST 18 (5-34) Units/L ALT 11 (0-55) Units/L Alkaline Phosphatase 63 (38-126) Units/L Albumin 3.6 (3.5-5.0) g/dL - Impressions ITS Impressions Abdomen Arteriogram 08/22/17 00:00 IMPRESSION: Successful hepatic arteriography and embolization to treat metastatic colon cancer. D/ /22/2017 14:39:32 Lian Perez MD / suresh Interpreting Provider: Lian Perez MD Abdomen Arteriogram 08/22/17 00:00 IMPRESSION: Successful hepatic arteriography and embolization to treat metastatic colon cancer. D/ /22/2017 14:39:32 Lian Perez MD / suresh Interpreting Provider: Lian Perez MD Embolization 08/22/17 00:00 IMPRESSION: Successful hepatic arteriography and embolization to treat metastatic colon cancer. D/ /22/2017 14:39:32 Lian Perez MD / suresh Interpreting Provider: Lian Perez MD Embolization 08/22/17 00:00 IMPRESSION: Successful hepatic arteriography and embolization to treat metastatic colon cancer. D/ /22/2017 14:39:32 Lian Perez MD / suresh Interpreting Provider: Lian Perez MD - Attending Attestation I independently obtained history and examined this patient and my medical decision-making was reviewed with the nurse practitioner. I agree with the documented findings, disposition and treatment plan as described. My findings are summarized below: Patient currently reports nausea and has vomited a small amount of yellow gastric contents. Plan: Pain control, Zofran for nausea. At Phenergan for uncontrolled nausea. Monitor clinically. Possible discharge tomorrow.
[2017-08-22] MEDS ORDERED: *HR* Morphine 2 MG/ML SYRINGE IVP PRN (13:30)
[2017-08-22] MEDS: Ondansetron 4 MG/2 ML VIAL IVP PRN ×2 (13:40→20:25)
[2017-08-22] MEDS: 0.9 % Sodium Chloride 1,000 ML IVC SCH (13:46)
[2017-08-23] MEDS ORDERED: *HR* Promethazine 25 MG/ML VIAL ONE (00:02)
[2017-08-23] MEDS: *HR* Promethazine 25 MG/ML VIAL IVP PRN ×3 (00:13→13:03)
[2017-08-23] MEDS: 0.9 % Sodium Chloride 1,000 ML IVC SCH (04:26)
[2017-08-23] MEDS: *HR* Heparin 5,000 UNIT/ML VIAL SQ SCH ×3 (06:10→20:40)
[2017-08-23 06:44] LABS: Alanine Aminotransferase 79 Units/L (0-55); Albumin 4.1 g/dL (3.5-5.0); Albumin/Globulin Ratio 1.2 (1.1-2.2); Alkaline Phosphatase 95 Units/L (38-126); Aspartate Amino Transferase 121 Units/L (5-34); BUN/Creatinine Ratio 22 (6-26); Bilirubin,Total 0.9 mg/dL (0.2-1.2); Blood Urea Nitrogen 18 mg/dL (7-20); Calcium 9.6 mg/dL (8.6-10.8); Carbon Dioxide 24 mEq/L (19-29); Chloride 108 mEq/L (98-109); Globulin 3.3 g/dL (2.4-3.5); Glucose 145 mg/dL (70-99); Osmolality,Calculated 306 (280-300); Sodium 146 mEq/L (136-145); Total Protein 7.4 g/dL (6.0-8.3); eGFR For African Americans > 60 (> 60); eGFR For Non-African Americans > 60 (> 60)
[2017-08-23 06:51] LABS: Hematocrit 30.9 % (35.3-44.9); Hemoglobin 10.3 g/dL (11.5-15.4); Mean Corpuscular HGB Conc 33.3 g/dL (31.6-35.5); Mean Corpuscular Hemoglobin 31.4 pg (28.0-33.3); Mean Corpuscular Volume 94.2 fL (83.0-100.0); Mean Platelet Volume 12.2 fL (9.4-12.4); Platelet Count 223 K/mcL (140-400); Red Blood Count 3.28 M/mcL (3.82-4.97); Red Cell Distribution Width 24.9 % (11.5-14.5)
[2017-08-23] MEDS: Ondansetron 4 MG/2 ML VIAL IVP PRN (09:06)
[2017-08-23] MEDS: Potassium Chloride Elixir 20 MEQ/15 ML UDC PO SCH ×2 (13:00→16:38)
[2017-08-23] MEDS: Piperacillin/Tazobactam 3.375 GM in D5% in Water (Mini-Bag+) 100 ML IVPB SCH ×2 (16:27→23:50)
--- NOTE | 2017-08-23 16:46 | Internal Med Progress Note ---
Date of Encounter: 08/23/17 Time of Encounter: 12:20 - Assessment and plan (1) Colon cancer Current Visit: Yes Status: Acute Assessment and plan: Status post partial colonic resection. Underwent right hepatic artery embolization by interventional radiology yesterday, admitted for observation. Noted to have leukocytosis, WBC count almost doubled from 5000-10,000 today. Liver enzymes noted to be elevated secondary to procedure. Start IV Zosyn and continue to monitor for fever and leukocytosis. 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 Supplement with oral potassium chloride and recheck in a.m. (3) Chronic systolic heart failure Current Visit: Yes Status: Chronic Assessment and plan: Not in acute exacerbation. Hold diuretics for now due to mild dehydration and hypokalemia. Start Imdur and losartan. (4) Severe aortic stenosis Current Visit: Yes Status: Chronic (5) Anemia Current Visit: Yes Status: Chronic Assessment and plan: continue ferrous sulfate supplements; Qualifiers: Anemia type: unspecified type Qualified Code(s): D64.9 - Anemia, unspecified - Subjective Interval history: Reports generalized weakness and nausea; poor appetite; no abdominal pain, fever , chest pain; - Constitutional Vitals: Temp Pulse Resp BP Pulse Ox 98.2 F 56 15 148/75 96 08/23/17 15:44 08/23/17 15:44 08/23/17 15:44 08/23/17 15:44 08/23/17 15:44 General appearance: Present: cachectic, A&O X 3, answers questions appropriately - Respiratory Respiratory exam: Present: CTAB. Absent: accessory muscle use, rales, rhonchi, wheezes - Cardiovascular Cardiovascular exam: Present: RRR, +S1, +S2, systolic murmur. Absent: diastolic murmur, gallop, rubs - GI/Abdominal GI/Abdominal exam: Present: normal bowel sounds, soft, no peritoneal signs. Absent: distended, tenderness - Extremities Exam Extremities exam: Present: full ROM, warm, radial pulses palpable and symmetrical. Absent: calf tenderness, cyanotic, pedal edema - Neurological Exam Neurological exam: Present: CN II-XII intact, oriented X3, no focal deficits. Absent: pronater drift, facial droop, speech deficit Internal Medicine: Result - Labs CBC & Chem 7: 08/23/17 05:29 08/23/17 05:29 Labs: Short CBC 08/23/17 Range/Units 05:29 WBC 10.8 D (4.3-11.1) K/mcL Hgb 10.3 L (11.5-15.4) g/dL Hct 30.9 L (35.3-44.9) % Plt Count 223 (140-400) K/mcL BMP 08/23/17 05:29 Sodium 146 H Potassium 3.0 L Chloride 108 Carbon Dioxide 24 BUN 18 Creatinine 0.82 Glucose 145 H Calcium 9.6 Liver Function 08/23/17 Range/Units 05:29 Total Bilirubin 0.9 (0.2-1.2) mg/dL AST 121 H (5-34) Units/L ALT 79 H (0-55) Units/L Alkaline Phosphatase 95 (38-126) Units/L Albumin 4.1 (3.5-5.0) g/dL Consult Discharge Plan - Plan Referrals: Christian Marshall, ARI [Primary Care Provider] - 08/29/17 11:20 am
[2017-08-24 04:42] LABS: Basophils % 0.2 %; Hematocrit 28.3 % (35.3-44.9); Hemoglobin 9.4 g/dL (11.5-15.4); Immature Granulocytes % 0.5 % (0-4); Lymphocytes # 1.6 K/mcL (0.6-4.6); Lymphocytes % 11.5 %; Mean Corpuscular HGB Conc 33.2 g/dL (31.6-35.5); Mean Corpuscular Hemoglobin 31.3 pg (28.0-33.3); Mean Corpuscular Volume 94.3 fL (83.0-100.0); Mean Platelet Volume 11.6 fL (9.4-12.4); Monocytes # 1.1 K/mcL (0.0-1.3); Monocytes % 8.3 %; Platelet Count 178 K/mcL (140-400); Red Cell Distribution Width 25.5 % (11.5-14.5); Segmented Neutrophils % 79.5 %
[2017-08-24 04:46] LABS: Neutrophils # 10.7 K/mcL (1.6-8.9)
[2017-08-24 05:05] LABS: Alanine Aminotransferase 65 Units/L (0-55); Albumin 3.4 g/dL (3.5-5.0); Albumin/Globulin Ratio 1.1 (1.1-2.2); Alkaline Phosphatase 97 Units/L (38-126); Aspartate Amino Transferase 67 Units/L (5-34); BUN/Creatinine Ratio 21 (6-26); Bilirubin,Total 1.1 mg/dL (0.2-1.2); Blood Urea Nitrogen 18 mg/dL (7-20); Calcium 8.8 mg/dL (8.6-10.8); Carbon Dioxide 23 mEq/L (19-29); Chloride 106 mEq/L (98-109); Glucose 136 mg/dL (70-99); Osmolality,Calculated 286 (280-300); Total Protein 6.4 g/dL (6.0-8.3); eGFR For African Americans > 60 (> 60); eGFR For Non-African Americans > 60 (> 60)
[2017-08-24 05:10] LABS: Anisocytosis 3+ (Not Present); Macrocytosis Present (Not Present); Platelet Estimate Normal (Normal)
[2017-08-24 05:11] LABS: Potassium 4.3 mEq/L (3.5-4.5); Sodium 136 mEq/L (136-145)
[2017-08-24] MEDS: *HR* Heparin 5,000 UNIT/ML VIAL SQ SCH ×3 (06:22→22:22)
[2017-08-24] MEDS: Multivit/Ca/Min/Fe/FA 1 TAB TABLET PO SCH (08:36)
[2017-08-24] MEDS: Isosorbide MONOnitrate (24 HR) 30 MG TAB.ER.24H PO SCH (08:36)
[2017-08-24] MEDS: Piperacillin/Tazobactam 3.375 GM in D5% in Water (Mini-Bag+) 100 ML IVPB SCH ×2 (08:36→16:22)
[2017-08-24] MEDS ORDERED: 0.9 % Sodium Chloride 1,000 ML IVC SCH (12:45)
[2017-08-24] MEDS ORDERED: *HR* OxyCODONE/APAP 5/325 TABLET PO PRN (16:58)
--- NOTE | 2017-08-24 17:00 | Internal Med Progress Note ---
Date of Encounter: 08/24/17 Time of Encounter: 12:45 - Assessment and plan (1) Colon cancer Current Visit: Yes Status: Acute Assessment and plan: Status post partial colonic resection. Underwent right hepatic artery embolization by interventional radiology on 08/22, admitted for observation. Pain control with when necessary IV morphine and oral Percocet. Patient continues to have worsening leukocytosis along with low-grade fever and tachycardia. Send blood cultures and continue IV Zosyn for now. Likely related to recent procedure versus bacteremia. 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 Hold diuretics for now. Continue Imdur and losartan. (4) Severe aortic stenosis Current Visit: Yes Status: Chronic (5) Anemia Current Visit: Yes Status: Chronic Qualifiers: Anemia type: unspecified type Qualified Code(s): D64.9 - Anemia, unspecified (6) SIRS (systemic inflammatory response syndrome) Current Visit: Yes Status: Acute Assessment and plan: Leukocytosis with low grade fever and tachycardia, unclear etiology; continue antibiotics as above. - Subjective Interval history: Feels better, tolerates diet; improved nausea, vomiting, abdominal pain; - Constitutional Vitals: Temp Pulse Resp BP Pulse Ox 99.5 F 81 14 116/53 96 08/24/17 14:47 08/24/17 14:47 08/24/17 14:47 08/24/17 14:47 08/24/17 14:47 General appearance: Present: cachectic, A&O X 3, answers questions appropriately - Respiratory Respiratory exam: Present: CTAB. Absent: accessory muscle use, rales, rhonchi, wheezes - Cardiovascular Cardiovascular exam: Present: RRR, +S1, +S2, tachycardia. Absent: diastolic murmur, gallop, rubs, systolic murmur - GI/Abdominal GI/Abdominal exam: Present: normal bowel sounds, soft, no peritoneal signs. Absent: distended, tenderness - Extremities Exam Extremities exam: Present: full ROM, warm, radial pulses palpable and symmetrical. Absent: calf tenderness, cyanotic, pedal edema Additional comments: no hematoma/bleeding at right groin site - Neurological Exam Neurological exam: Present: CN II-XII intact, oriented X3, no focal deficits. Absent: pronater drift, facial droop, speech deficit Internal Medicine: Result - Labs CBC & Chem 7: 08/24/17 04:15 08/24/17 04:15 Labs: Short CBC 08/24/17 Range/Units 04:15 WBC 13.5 H (4.3-11.1) K/mcL Hgb 9.4 L (11.5-15.4) g/dL Hct 28.3 L (35.3-44.9) % Plt Count 178 (140-400) K/mcL Neutrophils # 10.7 H (1.6-8.9) K/mcL BMP 08/24/17 04:15 Sodium 136 D Potassium 4.3 D Chloride 106 Carbon Dioxide 23 BUN 18 Creatinine 0.85 Glucose 136 H Calcium 8.8 Liver Function 08/24/17 Range/Units 04:15 Total Bilirubin 1.1 (0.2-1.2) mg/dL AST 67 H (5-34) Units/L ALT 65 H (0-55) Units/L Alkaline Phosphatase 97 (38-126) Units/L Albumin 3.4 L (3.5-5.0) g/dL Consult Discharge Plan - Plan Referrals: Christian Marshall CNP [Primary Care Provider] - 08/29/17 11:20 am
[2017-08-25] MEDS: Piperacillin/Tazobactam 3.375 GM in D5% in Water (Mini-Bag+) 100 ML IVPB SCH ×2 (01:05→09:12)
[2017-08-25 05:49] LABS: Basophils % 0.2 %; Eosinophils % 0.2 %; Hematocrit 26.1 % (35.3-44.9); Hemoglobin 8.6 g/dL (11.5-15.4); Immature Granulocytes % 0.6 % (0-4); Immature Platelets 7.2 % (1.1-6.1); Lymphocytes # 1.4 K/mcL (0.6-4.6); Lymphocytes % 16.3 %; Mean Corpuscular Hemoglobin 31.3 pg (28.0-33.3); Mean Corpuscular Volume 94.9 fL (83.0-100.0); Mean Platelet Volume 11.1 fL (9.4-12.4); Monocytes # 0.9 K/mcL (0.0-1.3); Platelet Count 152 K/mcL (140-400); Red Blood Count 2.75 M/mcL (3.82-4.97); Red Cell Distribution Width 25.6 % (11.5-14.5); Segmented Neutrophils % 71.7 %
[2017-08-25 06:06] LABS: Alanine Aminotransferase 56 Units/L (0-55); Alkaline Phosphatase 72 Units/L (38-126); Aspartate Amino Transferase 38 Units/L (5-34); BUN/Creatinine Ratio 20 (6-26); Bilirubin,Total 0.6 mg/dL (0.2-1.2); Blood Urea Nitrogen 14 mg/dL (7-20); Calcium 8.1 mg/dL (8.6-10.8); Carbon Dioxide 22 mEq/L (19-29); Chloride 107 mEq/L (98-109); Globulin 2.6 g/dL (2.4-3.5); Glucose 103 mg/dL (70-99); Osmolality,Calculated 283 (280-300); Potassium 3.5 mEq/L (3.5-4.5); Sodium 136 mEq/L (136-145); Total Protein 5.3 g/dL (6.0-8.3); eGFR For African Americans > 60 (> 60); eGFR For Non-African Americans > 60 (> 60)
[2017-08-25 06:07] LABS: Albumin 2.7 g/dL (3.5-5.0)
[2017-08-25 06:10] LABS: Macrocytosis Present (Not Present); Platelet Estimate Normal (Normal)
[2017-08-25 06:11] LABS: Anisocytosis 3+ (Not Present)
[2017-08-25] MEDS: *HR* Heparin 5,000 UNIT/ML VIAL SQ SCH (06:14)
[2017-08-25] MEDS: Multivit/Ca/Min/Fe/FA 1 TAB TABLET PO SCH (09:12)
[2017-08-25] MEDS: Isosorbide MONOnitrate (24 HR) 30 MG TAB.ER.24H PO SCH (09:12)
--- NOTE | 2017-08-25 13:45 | Discharge Summary ---
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 (2) Hypokalemia Priority: Primary Status: Resolved (3) Chronic systolic heart failure Priority: Secondary Status: Chronic (4) Severe aortic stenosis Priority: Secondary Status: Chronic (5) Anemia Priority: Secondary Status: Chronic Qualifiers: Anemia type: unspecified type Qualified Code(s): D64.9 - Anemia, unspecified (6) SIRS (systemic inflammatory response syndrome) Priority: Primary Status: Acute - Discharge Medications Prescriptions: Amoxicillin/Clavulanate [Augmentin] 875 mg PO BIDWM #10 tablet Home Medications: Multivit-Min/FA/Lycopen/Lutein [Centrum Silver Tablet] 1 each PO DAILY 01/06/16 [History] Omeprazole Magnesium [Prilosec Otc] 20 mg PO DAILY 01/06/16 [History] Ferrous Sulfate [Iron] 325 mg PO DAILY 02/18/16 [History] Pravastatin Sodium [Pravachol] 40 mg PO DAILY 02/18/16 [History] Timolol [Betimol] 1 drop OP QAM 02/18/16 [History] Isosorbide MONOnitrate (24 HR) [Imdur] 30 mg PO DAILY 03/28/16 [History] Losartan Potassium [Cozaar] 25 mg PO DAILY 03/28/16 [History] Potassium Chloride [Klor-Con 10] 20 meq PO DAILY 05/26/17 [History] Torsemide 50 mg PO DAILY 07/07/17 [History] Capecitabine [Xeloda] 500 mg PO BID 08/22/17 [History] Potassium Chloride [Klor-Con 10] 10 meq PO DAILY 08/23/17 [History] Amoxicillin/Clavulanate [Augmentin] 875 mg PO BIDWM #10 tablet 08/25/17 [Rx] Allergies/Adverse Reactions: 3 Allergy/AdvReac Type Severity Reaction Status Date / Time Sulfa (Sulfonamide Allergy Rash Verified 04/27/17 09:23 Antibiotics) bacitracin AdvReac Redness of Verified 04/27/17 09:23 [From Neosporin Skin ([id number])] lisinopril AdvReac Cough Verified 04/27/17 09:23 Neomycin AdvReac Redness of Verified 04/27/17 09:23 [From Neosporin Skin ([id number])] polymyxin B AdvReac Redness of Verified 04/27/17 09:23 [From Neosporin Skin ([id number])] Date of admission: 08/24/17 12:18 Primary care physician: Christian Marshall CNP Discharging clinician: Naty Martino Anticipated date of discharge: 08/25/17 - Patient Status Disposition: Home, Self-Care Condition: Fair Functional capacity at discharge: independent ambulation Overall status at discharge: patient is progressing back to baseline - Discharge Instructions Instructions: Influenza Virus Vaccine (Injection), Urinary Tract Infection in Women (DC) Follow Up With: Christian Marshall CNP [Primary Care Provider] - 08/29/17 11:20 am Additional Instructions: LIFTING: Avoid lifting anything more than 10 pounds for 5-7 days Prior to straining, laughing, sneezing and/or coughing, apply manual pressure directly over insertion site. ACTIVITY: You may walk or climb stairs as tolerated You can resume sexual activity as tolerated In general, you are encouraged to engage in a minimum of 30 minutes or more of moderate intensity physical activity, such as brisk walking, daily or at least 3 -4 times weekly BATHING Do not submerge the site into water (bath tub, hot tub, swimming pool) for 1 week. This can be a source for infection into the blood stream. You may shower after 24 hours SITE CARE: After 24 hours, you may remove the dressing and leave the site open to air. Keep the site clean and dry. Clean gently and pat dry. You can expect bruising and tenderness that gradually resolve within a week or two. Return to work as instructed per your physician Resume driving as instructed per physician Keep all scheduled follow up appointments Resume medications as instructed STROKE (CVA) Risk factors for a stroke are: Age, cigarette smoking, diabetes, excessive alcohol consumption, family history, high blood pressure, overweight, physical inactivity, prior stroke, heart attack, diagnosis of carotid artery stenosis or other artery disease. Warning signs: Sudden numbness or weakness of the face, arm or leg; especially on one side of the body, sudden confusion, trouble speaking or understanding, sudden trouble seeing in one or both eyes, sudden trouble walking, dizziness, loss of balance or coordination, sudden severe headache with no cause. Call 911 or go to the Emergency Room. BLEEDING: Although the risk of bleeding is minimal, it can happen. If you have any bleeding from the site, apply firm pressure above the puncture site for 10-15 minutes. If the bleeding does not stop, continue manual pressure and call 911 Contact your physician if: You develop a fever greater than 101 degrees Fahrenheit Your site becomes reddened or has any drainage You have an increase in pain or burning at the site or if a large knot forms at the site. If you experience chest pain, shortness of breath, dizziness, or extreme tiredness, stop the activity and rest. Please notify your physicians office if you experience any of these symptoms and they are not relieved by rest please call 911! - Diet and Activity Activity: resume usual activities as tolerated Diet: low fat, low cholesterol, low salt diet Hospital course: Ms. Barton is a 87 year old female with history of colon cancer with liver metastases was admitted for observation following right hepatic artery embolization by interventional radiology. She was noted to have leukocytosis and was started on IV Zosyn. Blood cultures remained negative. She was also noted to have low-grade fever, tachycardia and worsening leukocytosis during her hospitalization, which have currently resolved. She was noted to have hypernatremia and hypokalemia, which have currently resolved with IV hydration and potassium supplements. She is otherwise medically stable for discharge at this time. - Time Spent with Patient Total time spent providing and/or coordinating discharge services: Greater than 30 minutes (40 min) - Constitutional Vitals: Temp Pulse Resp BP Pulse Ox 98.2 F 61 14 108/69 95 08/25/17 10:45 08/25/17 10:45 08/25/17 10:45 08/25/17 10:45 08/25/17 10:45 General appearance: Present: cachectic, A&O X 3, answers questions appropriately - Cardiovascular Cardiovascular exam: Present: RRR, +S1, +S2. Absent: diastolic murmur, gallop, rubs, systolic murmur - GI/Abdominal GI/Abdominal exam: Present: normal bowel sounds, soft, no peritoneal signs. Absent: distended, tenderness
[2017-08-25 14:43] VITALS: BP 114/61
== END 2017-08-25 15:40 | disposition home or self-care (01) | DRG 908 ==
LOC: SUATTDRO → INTRAD 07:37 → 3BNU 07:37
PROVIDERS: ADMIT Internal Medicine; ATTEND Internal Medicine